=== PATIENT | female | born 1970 | race Caucasian/White ===

== ENCOUNTER 2021-10-23 15:00 | Emergency (ER) | payer OTHER ==
[2021-10-23 15:06] VITALS: RESP 16
[2021-10-23] MEDS ORDERED: ORPHENADRINE 30 MG/ML 2 ML VIAL IVP STA (15:56)
[2021-10-23] MEDS ORDERED: MORPHINE SULFATE 4 MG/ML SYRINGE IVP STA (15:56)
[2021-10-23] MEDS ORDERED: LIDOCAINE 5% PATCH TOPICAL SCH (16:00)
[2021-10-23] MEDS ORDERED: MORPHINE SULFATE 4 MG/ML SYRINGE IM STA (16:19)
[2021-10-23] MEDS ORDERED: ORPHENADRINE 30 MG/ML 2 ML VIAL IM STA (16:20)
--- NOTE | 2021-10-23 16:27 | XR ---
EXAMINATION TYPE: XR hand complete LT DATE OF EXAM: 10/23/2021 COMPARISON: NONE HISTORY: Pain TECHNIQUE: 3 views FINDINGS: There is soft tissue swelling on the dorsum of the hand. Metacarpals are intact. The finger s appear intact. There is nondisplaced transverse fracture of the distal radial metaphysis. This is 1 cm from the wris t joint. Distal ulna is intact. IMPRESSION: Soft tissue swelling. Acute nondisplaced distal radius fracture. There is comminution wit h intra-articular extension.
--- NOTE | 2021-10-23 16:28 | XR ---
EXAMINATION TYPE: XR wrist complete LT DATE OF EXAM: 10/23/2021 COMPARISON: NONE HISTORY: Pain TECHNIQUE: 4 views FINDINGS: There is acute transverse fracture distal radius. This is 1 cm from the wrist joint. There is also fracture line extending to the radiocarpal joint. Distal ulna is intact. Carpal bones are int act. IMPRESSION: Acute nondisplaced comminuted distal radius fracture.
--- NOTE | 2021-10-23 18:04 | ED ---
Fall HPI - General Chief Complaint: Fall Stated Complaint: hurt L hand Time Seen by Provider: 10/23/21 15:32 Source: patient Mode of arrival: ambulatory - History of Present Illness Initial Comments: Patient is a 50-year-old female who presents to the emergency department for evaluation of fall. Patient states she was walking her pitbull holding the leash when her dog pulled toward another dog which cause her to fall on her outstretched left hand. Patient endorses pain over the back of her wrist as well as her hand. There is snuffbox tenderness. Patient denies numbness and tingling. Did not take anything for pain. - Related Data Previous Rx's Medication Instructions Recorded HYDROcodone/APAP 10-325MG [[place] 1 tab PO Q4HR PRN 3 Days #18 tab 10/23/21 10-325] Lidocaine 5% Patch [Lidoderm 5% 1 patch TOPICAL DAILY PRN #7 patch 10/23/21 Patch] Allergies Allergy/AdvReac Type Severity Reaction Status Date / Time furosemide [From Lasix] Allergy Unknown Verified 10/23/21 15:06 Review of Systems ROS Statement: Those systems with pertinent positive or pertinent negative responses have been documented in the HPI. ROS Other: All systems not noted in ROS Statement are negative. Past Medical History Past Medical History: Diabetes Mellitus, Hyperlipidemia, Hypertension, Thyroid Disorder Additional Past Medical History / Comment(s): lupus History of Any Multi-Drug Resistant Organisms: None Reported Past Surgical History: Coronary Bypass/CABG Additional Past Surgical History / Comment(s): triple bypass Past Psychological History: Anxiety, Bipolar, PTSD Smoking Status: Current every day smoker Past Alcohol Use History: None Reported Past Drug Use History: None Reported General Exam Limitations: no limitations General appearance: alert, in no apparent distress Head exam: Present: atraumatic, normocephalic, normal inspection Respiratory exam: Present: normal lung sounds bilaterally. Absent: respiratory distress, wheezes, rales, rhonchi, stridor Cardiovascular Exam: Present: regular rate, normal rhythm, normal heart sounds. Absent: systolic murmur, diastolic murmur, rubs, gallop, clicks Right Upper Arm exam: Present: normal inspection, full ROM. Absent: tenderness, swelling Elbow exam: Present: normal inspection, full ROM. Absent: tenderness, swelling Forearm Wrist exam: Present: full ROM. Absent: normal inspection (Significant tenderness and swelling over the posterior distal forearm and posterior hand. tenderness or anatomical snuffbox. Neurovascularly intact.), deformity Neuro motor exam: Present: wrist extension intact, thumb opposition intact, thumb IP flexion intact, thumb adduction intact, fingers 2-5 abduction intact Vascular: Present: normal capillary refill, radial pulse, brachial pulse, ulnar pulse. Absent: vascular compromise, Pallo Neurological exam: Present: alert, oriented X3, CN II-XII intact Psychiatric exam: Present: normal affect, normal mood Skin exam: Present: warm, dry, intact, normal color. Absent: rash Course Vital Signs 10/23/21 10/23/21 15:01 18:31 Temperature 98.1 F 97.8 F Pulse Rate 82 78 Respiratory 16 16 Rate Blood Pressure 154/89 152/76 O2 Sat by Pulse 98 97 Oximetry Procedures - Orthopedic Splinting/Casting Injury #1 Upper Extremity Injury Location: short arm Upper Extremity Immobilizer: volar splint Medical Decision Making - Medical Decision Making This is a 50-year-old female who presents with left wrist and hand pain after fall on outstretched hand today. Thorough history and examination were performed. There is significant tenderness and swelling over the posterior distal forearm and posterior hand. Tenderness over anatomical snuffbox. Neurovascularly intact. Left hand and wrist x-ray shows acute comminuted nondisplaced distal radius fracture. There is fracture line extending to the radial carpal joint. Distal ulna is intact. Carpal and metacarpal bones are intact. Pain controlled with morphine. Patient placed in a volar forearm splint. Neurovascularly intact on reevaluation. Patient referred to assessment specialist. Fracture care education provided in detail. Return parameters discussed. Patient verbalizes understanding and is agreeable to this plan. Dr. Amin is my attending Disposition Clinical Impression: Distal radius fracture, left Disposition: HOME SELF-CARE Condition: Good Additional Instructions: You will have an acute nondisplaced comminuted distal radius fracture. Keep splint clean and dry. Take medication as directed. Follow-up with assessment specialist in the morning. Return to the emergency department if you experience new, concerning, or worsening symptoms. Prescriptions: Lidocaine 5% Patch [Lidoderm 5% Patch] 1 patch TOPICAL DAILY PRN #7 patch PRN Reason: Pain HYDROcodone/APAP 10-325MG [[place] 10-325] 1 tab PO Q4HR PRN 3 Days #18 tab PRN Reason: Pain Is patient prescribed a controlled substance at d/c from ED?: Yes If prescribed controlled substance>3 days was MAPS reviewed?: Yes Referrals: Mohsen Gonsalez MD [Primary Care Provider] - 1-2 days Time of Disposition: 18:04
[2021-10-23 18:32] VITALS: BP 152/76; PULSE 78; TEMP 97.8
== END 2021-10-23 18:31 | disposition home or self-care (01) ==
LOC: EC 15:00
DX: S52.502A Unspecified fracture of the lower end of left radius, initial encounter for closed fracture (principal); E11.9 Type 2 diabetes mellitus without complications; E78.5 Hyperlipidemia, unspecified; I10 Essential (primary) hypertension; E07.9 Disorder of thyroid, unspecified; F17.200 Nicotine dependence, unspecified, uncomplicated; Z88.2 Allergy status to sulfonamides; W19.XXXA Unspecified fall, initial encounter; Y93.01 Activity, walking, marching and hiking
CPT/HCPCS: 73110; 73130; 99283; 29125; 96372; J2270; J2360

== ENCOUNTER → 2022-01-10 | Outpatient (CLI) | payer OTHER ==
--- NOTE | 2022-01-10 13:40 | XR ---
Left knee Limited HISTORY: Left knee pain 2 views the left knee No comparisons There is marginal spurring tricompartmentally. Joint space loss is mild. Suprapatellar increased dens ity is consistent with joint effusion. Surgical clips are present along the medial aspect of the left leg. Bone mineralization and alignment are maintained. No fracture or dislocation. Atherosclerotic v ascular calcifications are noted incidentally. IMPRESSION: Osteoarthritis.
--- NOTE | 2022-01-10 13:45 | XR ---
MR spine HISTORY: M54.5, M25.562 3 views of lumbar spine There is a slight dextroscoliosis centered at L3. Multilevel spondylosis is present. Some mild loss o f disc height present at intervertebral levels. Lumbar vertebral bodies show preserved height and bon e mineralization. Atherosclerotic vascular calcifications present in the aorta iliac distribution. IMPRESSION: Degenerative disc disease.
== END | disposition home or self-care (01) ==
LOC: RADXRMAIN 12:49
PROVIDERS: ATTEND Family Medicine
DX: M17.12 Unilateral primary osteoarthritis, left knee (principal); M51.36 Other intervertebral disc degeneration, lumbar region
CPT/HCPCS: 72100

== ENCOUNTER → 2022-02-14 | Outpatient (CLI) | payer OTHER ==
--- NOTE | 2022-02-14 15:39 | XR ---
EXAMINATION TYPE: XR wrist limited LT DATE OF EXAM: 02/14/2022 CLINICAL HISTORY: Pain. TECHNIQUE: Frontal and lateral views left wrist. COMPARISON: Prior left wrist x-ray October 23, 2021 FINDINGS: There is no acute fracture/dislocation evident in the left wrist. Mild narrowing and spur ring base of first metacarpal. The carpal joint spaces are otherwise fairly well-maintained. The ove rlying soft tissue appears unremarkable. IMPRESSION: As above.
== END | disposition home or self-care (01) ==
LOC: RADXRMAIN 09:45
PROVIDERS: ATTEND Family Medicine
DX: M25.742 Osteophyte, left hand (principal)

== ENCOUNTER → 2022-08-23 | Outpatient (CLI) | payer OTHER ==
[~2022-08-23] MED LIST: REGADENOSON 0.4 MG/5 ML SYRINGE IV PRN
--- NOTE | 2022-08-23 13:21 | NM ---
EXAMINATION TYPE: NM stress lexiscan cardiolite DATE OF EXAM: 08/23/2022 COMPARISON: NONE CLINICAL INDICATION: Female, 51 years old with history of I20.0 I50.22 I25.10; chest pain TECHNIQUE: After the intravenous administration of 8.6 mCi Tc 99m Sestamibi - Cardiolite resting SPE CT images acquired 55 minutes post injection. The patient received 0.4mg Lexiscan, 22.7 mCi Tc 99m Sestamibi - Stress images obtained [address] injection FINDINGS: Review of stress and rest SPECT images demonstrates small area of stress-induced reversibility involv ing the inferior lateral wall. Gated analysis shows normal wall motion with an estimated left ventri cular ejection fraction of 61 %. Report called to referring clinician 08/23/2022 at 1:16 PM. IMPRESSION: Finding suspicious for a small area of stress-induced reversible ischemia involving the inferolateral myocardium..
== END | disposition home or self-care (01) ==
LOC: RADNMMAIN 09:27
PROVIDERS: ATTEND Family Medicine
DX: I25.10 Atherosclerotic heart disease of native coronary artery without angina pectoris (principal); I20.0 Unstable angina; I50.22 Chronic systolic (congestive) heart failure
CPT/HCPCS: 93017; 78452; A9500; J2785

== ENCOUNTER 2023-09-18 20:27 | Observation (INO) | payer OTHER ==
--- NOTE | 2023-09-18 21:09 | ED ---
Chest Pain HPI - General Chief Complaint: Chest Pain Stated Complaint: Chest/Back Pain Time Seen by Provider: 09/18/23 20:51 Source: patient, RN notes reviewed Mode of arrival: wheelchair Limitations: no limitations - History of Present Illness Initial Comments: This is a 52-year-old female who presents to the emergency department for chest pain and back pain. States that around 8 PM she developed pain in her right lower back radiating down her right leg. States that this felt like a flareup of sciatica, which she does have a history of. About 10 to 15 minutes afterwards she started to develop chest pressure. States that she has never developed chest pressure before in association with sciatica, which concerned her. She tried taking nitroglycerin, which did not help with her pain. Reports shortness of breath associated with chest pressure. She had triple bypass surgery in 2014. Denies any problems with her heart since. No longer taking any blood thinners. Does follow with cardiology locally but cannot remember who she follows with. States that they would like her to have a stress test soon. MD Complaint: chest pain - Related Data Home Medications Medication Instructions Recorded Confirmed Aspirin 81 mg PO DAILY 09/19/23 09/19/23 Atorvastatin Calcium [Lipitor] 80 mg PO HS 09/19/23 09/19/23 Baclofen 10 mg PO TID PRN 09/19/23 09/19/23 Calcium Carbonate/Vitamin D3 1 tab PO TID 09/19/23 09/19/23 [Calcium 500-Vit D3 400 Chew Tb] Desvenlafaxine [Pristiq ER] 100 mg PO DAILY 09/19/23 09/19/23 Docusate Sodium 250 mg PO DAILY PRN 09/19/23 09/19/23 Gabapentin 800 mg PO TID 09/19/23 09/19/23 Nitroglycerin Sl Tabs [Nitrostat] 0.4 mg SUBLINGUAL Q5M PRN 09/19/23 09/19/23 Topiramate [Topamax] 200 mg PO BID 09/19/23 09/19/23 carvediloL [Coreg] 25 mg PO BID 09/19/23 09/19/23 oxyCODONE-APAP 5-325MG [Percocet 1 tab PO BID PRN 09/19/23 09/19/23 5-325 mg] Previous Rx's Medication Instructions Recorded Acetaminophen Tab [Tylenol] 650 mg PO Q6HR PRN tab 09/20/23 Isosorbide Mononitrate ER [Imdur] 30 mg PO DAILY #30 tab 09/20/23 Losartan [Cozaar] 25 mg PO DAILY #30 tab 09/20/23 Allergies Allergy/AdvReac Type Severity Reaction Status Date / Time furosemide [From Lasix] Allergy Unknown Verified 09/19/23 07:41 amlodipine [From Norvasc] AdvReac Swelling Verified 09/19/23 07:41 isosorbide [From Isordil] AdvReac Headache Verified 09/19/23 07:41 Review of Systems ROS Statement: Those systems with pertinent positive or pertinent negative responses have been documented in the HPI. ROS Other: All systems not noted in ROS Statement are negative. Past Medical History Past Medical History: Diabetes Mellitus, Hyperlipidemia, Hypertension, Thyroid Disorder Additional Past Medical History / Comment(s): lupus History of Any Multi-Drug Resistant Organisms: None Reported Past Surgical History: Coronary Bypass/CABG Additional Past Surgical History / Comment(s): triple bypass Past Psychological History: Anxiety, Bipolar, PTSD Smoking Status: Current every day smoker Past Alcohol Use History: None Reported Past Drug Use History: Marijuana General Exam Limitations: no limitations General appearance: alert, in no apparent distress Head exam: Present: atraumatic, normocephalic, normal inspection Respiratory exam: Present: normal lung sounds bilaterally. Absent: respiratory distress, wheezes, rales, rhonchi, stridor Cardiovascular Exam: Present: regular rate, normal rhythm, normal heart sounds. Absent: systolic murmur, diastolic murmur, rubs, gallop, clicks Extremities exam: Present: other (Tenderness to palpation of the majority of the right leg. No deformities. 2+ DP and PT pulses.) Neurological exam: Present: alert, oriented X3, CN II-XII intact Psychiatric exam: Present: normal affect, normal mood Skin exam: Present: warm, dry, intact, normal color. Absent: rash Course Vital Signs 09/18/23 09/19/23 09/19/23 20:30 00:29 02:14 Temperature 98.1 F Pulse Rate 81 56 L 63 Respiratory 18 19 18 Rate Blood Pressure 154/94 111/64 131/78 O2 Sat by Pulse 97 95 96 Oximetry 07/03/24 07/03/24 04:00 08:19 Temperature Pulse Rate 61 53 L Respiratory 18 18 Rate Blood Pressure 118/77 132/78 O2 Sat by Pulse 96 99 Oximetry Chest Pain MDM - MDM This is a 52 year old female who presents to the emergency department for chest pain. Was pt. sent in by a medical professional or institution? @ -No Did you speak to anyone other than the patient for history? @ -No Did you review nursing and triage notes? @ -Yes, and I agree, it is accurate with regards to the patient's symptoms. Were old charts reviewed? @ -No Differential Diagnosis? @ -Differential Chest Pain: Stable Angina, Unstable Angina, STEMI, NSTEMI Aortic Dissection, Pneumothorax, Musculoskeletal, Esophageal Spasm GERD, Cholecystitis, Pancreatitis, Zoster, this is not meant to be an all-inclusive list. EKG interpreted by me (3pts min.)? @ -EKG interpreted by me demonstrating the following: Sinus rhythm. Ventricular rate 71 bpm, MS interval 166 ms, QRS duration 94 ms, QTc 439 ms. X-rays interpreted by me (1pt min.)? @ -Chest x-ray obtained, my interpretation identifies no localized consolidations or infiltrates. CT interpreted by me (1pt min.)? @ -Not obtained U/S interpreted by me (1pt. min.)? @ -Not obtained What testing was considered but not performed? (CT, X-rays, U/S, labs)? Why? @ -None What meds were considered but not given? Why? @ -None Did you discuss the management of the patient with other professionals? @ -No Did you reconcile home meds? @ -No Was smoking cessation discussed for >3mins.? @ -No Was critical care preformed (if so, how long)? @ -No Were there social determinants of health that impacted care today? How? (Homelessness, low income, unemployed, alcoholism, drug addiction, transportation, low edu. Level, literacy, decrease access to med. care, half-way, rehab)? @ -No Was there de-escalation of care discussed even if they declined? (Discuss DNR or withdrawal of care, Hospice)? @ -No What co-morbidities impacted this encounter? (DM, HTN, Smoking, COPD, CAD, Cancer, CVA, Hep., AIDS, mental health diagnosis, sleep apnea, morbid obesity)? @ -CAD Was patient admitted / discharged? @ -Admitted. Lab work unremarkable including a negative troponin and negative D-dimer. Chest x-ray reveals no acute process. Patient had severe chest pain on arrival and she was given aspirin and Nitropaste was applied. She had no improvement in symptoms following those medications. Given the patient's history of CAD with triple bypass in 2014 and persistent chest pain, she was admitted to medicine for cardiac observation/ACS rule out. Consult placed for cardiology and serial troponins ordered. Patient kept NPO after midnight in the event she needs a stress test or any interventions tomorrow. Undiagnosed new problem with uncertain prognosis? @ -None Drug Therapy requiring intensive monitoring for toxicity (Heparin, Nitro, Insulin, Cardizem)? @ -None Were any procedures done? @ -None Diagnosis/symptom? @ -Chest pain Acute, or Chronic, or Acute on Chronic? @ -Acute Uncomplicated (without systemic symptoms) or Complicated (systemic symptoms)? @ -Uncomplicated Side effects of treatment? @ -None Exacerbation, Progression, or Severe Exacerbation] @ -Not applicable Poses a threat to life or bodily function? @ -Yes if due to ACS This case was discussed in detail with the attending ED physician, Dr. Holder. Presentation, findings, and treatment plan discussed in detail as well. Disposition Clinical Impression: Chest pain Disposition: ADMITTED IP TO THIS HOSP
[2023-09-18 21:39] LABS: Basophils % (A) 1 %; Eosinophils # (A) 0.2 k/uL (0-0.7); Eosinophils % (A) 3 %; HCT 38.8 % (34.0-46.0); HGB 12.8 gm/dL (11.4-16.0); Lymphocytes # (A) 2.1 k/uL (1.0-4.8); Lymphocytes % (A) 34 %; MCHC 32.9 g/dL (31.0-37.0); MCV 94.3 fL (80.0-100.0); Mean Platelet Volume 8.1; Monocytes # (A) 0.4 k/uL (0-1.0); Monocytes % (A) 6 %; Neutrophils # (A) 3.3 k/uL (1.3-7.7); Neutrophils % (A) 53 %; Platelet Count 190 k/uL (150-450); RBC 4.11 m/uL (3.80-5.40); RDW 13.1 % (11.5-15.5); WBC 6.2 k/uL (3.8-10.6)
--- NOTE | 2023-09-18 21:50 | XR ---
EXAMINATION TYPE: XR chest 2V DATE OF EXAM: 09/18/2023 COMPARISON: None HISTORY: 52-year-old female with chest pain TECHNIQUE: PA and lateral views FINDINGS: Median sternotomy wires are present with post-CABG clips. Heart normal size. Hazy lower lung densitie s relating to overlying soft tissue. No consolidation or pleural effusion. IMPRESSION: No acute cardiopulmonary process.
[2023-09-18] MEDS: ASPIRIN 81 MG PO STA (21:54)
[2023-09-18] MEDS: SODIUM CHLORIDE 0.9% 1,000 ML IV STA (21:55)
[2023-09-18] MEDS: NITROGLYCERIN OINT 1 INCH/GM PACKET TOPICAL STA (21:55)
[2023-09-18] MEDS: KETOROLAC 15 MG/ML 1 ML VIAL IVP STA (21:55)
[2023-09-18 21:57] LABS: ALT 18 U/L (4-34); AST 26 U/L (14-36); African American GFR (CKD) >90 (>60 ml/min/1.73 sqM); Albumin 3.6 g/dL (3.5-5.0); Alkaline Phosphatase 55 U/L (38-126); Anion Gap 6 mmol/L; Blood Urea Nitrogen 10 mg/dL (7-17); Calcium 8.7 mg/dL (8.4-10.2); Carbon Dioxide 23 mmol/L (22-30); Chloride 114 mmol/L (98-107); Glucose 96 mg/dL (74-99); Lipase 165 U/L (23-300); Non-African American GFR(CKD) >90 (>60 ml/min/1.73 sqM); Potassium 3.4 mmol/L (3.5-5.1); Sodium 143 mmol/L (137-145); Total Bilirubin 0.4 mg/dL (0.2-1.3); Total Protein 6.1 g/dL (6.3-8.2)
[2023-09-18 23:08] LABS: Partial Thromboplastin Time 23.9 sec (22.0-30.0)
[2023-09-18] MEDS ORDERED: ACETAMINOPHEN TAB 325 MG TAB PO PRN (23:15)
[2023-09-18] MEDS ORDERED: NALOXONE 0.4 MG/ML 1 ML VIAL IV PRN (23:15)
[2023-09-18] MEDS ORDERED: ONDANSETRON 4 MG/2 ML VIAL IVP PRN (23:15)
[2023-09-18] MEDS ORDERED: MORPHINE SULFATE 4 MG/ML SYRINGE IV PRN (23:15)
[2023-09-18] MEDS: MORPHINE SULFATE 4 MG/ML SYRINGE IVP STA (23:20)
[2023-09-19] MEDS: HYDROcodone/APAP 5-325MG 1 EACH TAB PO PRN (00:39)
[2023-09-19] MEDS: KETOROLAC 15 MG/ML 1 ML VIAL IVP PRN (00:52)
[2023-09-19] MEDS ORDERED: CAFFEINE CITRATE 60 MG/3 ML VIAL IV PRN (08:02)
[2023-09-19] MEDS ORDERED: REGADENOSON 0.4 MG/5 ML SYRINGE IV PRN (08:02)
[2023-09-19] MEDS ORDERED: AMINOPHYLLINE 500 MG/20 ML VIAL IV PRN (08:02)
[2023-09-19] MEDS ORDERED: DEXTROSE 50% SYRINGE 50 ML IVP PRN ×2 (08:22)
--- NOTE | 2023-09-19 08:25 | P.HPIM ---
History of Present Illness H&P Date: 09/19/23 Chief Complaint: Chest pain This a 52-year-old female with past medical history significant for diabetes mellitus-diet controlled, CABG 2014, hypertension, hyperlipidemia, hyp othyroidism, lupus, bipolar disorder, nicotine dependence, marijuana use, degenerative disc disease-follows with Dr. Gallo-on disability and multiple other medical issues presented to the ER with complaints of midsternal chest and lower back pain radiating through her right hip down into her right thigh. She reports approximately 15 minutes after the flareup of her sciatica, she developed chest pressure with shortness of breath for about half an hour. Attempted nitroglycerin sublingual x 3. Pain subsided with no reoccurrence. Denies numbness or tingling of extremities. Troponins negative x 3, EKG reporting sinus rhythm, chest x-ray reported no acute cardiopulmonary process. Blood sugars controlled .hematology, coagulation, chemistry panel unremarkable with the exception of potassium 3.4. Repeat potassium level ordered. Review of Systems ROS Statement: Those systems with pertinent positive or pertinent negative responses have been documented in the HPI. ROS Other: All systems not noted in ROS Statement are negative. Past Medical History Past Medical History: Diabetes Mellitus, Hyperlipidemia, Hypertension, Thyroid Disorder Additional Past Medical History / Comment(s): lupus History of Any Multi-Drug Resistant Organisms: None Reported Past Surgical History: Coronary Bypass/CABG Additional Past Surgical History / Comment(s): triple bypass Past Psychological History: Anxiety, Bipolar, PTSD Smoking Status: Current every day smoker Past Alcohol Use History: None Reported Past Drug Use History: Marijuana Medications and Allergies Home Medications Medication Instructions Recorded Confirmed Type Aspirin 81 mg PO DAILY 09/19/23 09/19/23 History Atorvastatin Calcium [Lipitor] 80 mg PO HS 09/19/23 09/19/23 History Baclofen 10 mg PO TID PRN 09/19/23 09/19/23 History Calcium Carbonate/Vitamin D3 1 tab PO TID 09/19/23 09/19/23 History [Calcium 500-Vit D3 400 Chew Tb] Desvenlafaxine [Pristiq ER] 100 mg PO DAILY 09/19/23 09/19/23 History Docusate Sodium 250 mg PO DAILY PRN 09/19/23 09/19/23 History Gabapentin 800 mg PO TID 09/19/23 09/19/23 History Nitroglycerin Sl Tabs [Nitrostat] 0.4 mg SUBLINGUAL Q5M PRN 09/19/23 09/19/23 History Topiramate [Topamax] 200 mg PO BID 09/19/23 09/19/23 History carvediloL [Coreg] 25 mg PO BID 09/19/23 09/19/23 History oxyCODONE-APAP 5-325MG [Percocet 1 tab PO BID PRN 09/19/23 09/19/23 History 5-325 mg] Allergies Allergy/AdvReac Type Severity Reaction Status Date / Time furosemide [From Lasix] Allergy Unknown Verified 09/19/23 07:41 amlodipine [From Norvasc] AdvReac Swelling Verified 09/19/23 07:41 isosorbide [From Isordil] AdvReac Headache Verified 09/19/23 07:41 Physical Exam Vitals: Vital Signs Temp Pulse Resp BP Pulse Ox 09/19/23 04:00 61 18 118/77 96 09/19/23 02:14 63 18 131/78 96 09/19/23 00:29 56 L 19 111/64 95 09/18/23 20:30 98.1 F 81 18 154/94 97 Intake and Output 09/18/23 09/19/23 09/19/23 22:59 06:59 14:59 Other: Weight 87.997 kg PHYSICAL EXAM: VITAL SIGNS: [As above] GENERAL: Obese, alert and orient x 3, sitting up on stretcher, no acute distress HEENT: Normocephalic, atraumatic, conjunctivae normal. eyes normal. NECK: Supple, no JVD. No thyroid enlargement. No LNs CARDIOVASCULAR: S1, S2 regular.No murmur RESPIRATION: Unlabored, equal air entry, clear to auscultation. ABDOMEN: Soft, nontender . No guarding. no masses palpable. No ascites, No h epatosplenomegaly.Bowel sounds heard. LEGS: No edema. no swelling, no clubbing, no cyanosis, no calf tenderness. Positive DP. NERVOUS SYSTEM: Cranial N 2-12 grossly normal. No focal deficits. Strength and sensation grossly intact. Skin: Warm and dry, no rash Results CBC & Chem 7: 09/18/23 21:19 09/19/23 11:01 Labs: Abnormal Lab Results - Last 24 Hours (Table) 09/18/23 Range/Units 21:19 Potassium 3.4 L (3.5-5.1) mmol/L Chloride 114 H (98-107) mmol/L Total Protein 6.1 L (6.3-8.2) g/dL Assessment and Plan Assessment: Sciatica with midsternal chest pressure, unrelieved by nitroglycerin, troponins negative x 3 CAD, history of CABG 2014 Hypertension Hyperlipidemia Diabetes mellitus, hemoglobin A1c ordered Bipolar Nicotine dependence Marijuana use Obesity, BMI 31 Plan: Continue on current medication resume ,monitoring and symptomatic treatment.NPO, Evaluated by cardiology. 2D echo, Lexiscan stress test ordered. Smoking and marijuana cessation reinforced. Repeat potassium level ordered .patient will be discharged home today in a stable condition with guarded prognosis pending cardiac testing, final DC recommendations and clearance per ca rdiology. The impression and plan of care has been dictated as directed. : I performed a history and examination of this patient, discussed the same with the dictator. I agree with the dictator's note ,documented as a scribe. Any additional findings or plans will be noted.
[2023-09-19 08:31] LABS: Glucose,Whole Blood 97 mg/dL (70-110)
[2023-09-19] MEDS: INSULIN ASPART (NovoLOG) 100 UNIT/ML VIAL SQ SCH (08:31)
--- NOTE | 2023-09-19 09:00 | P.CRDCN ---
History of Present Illness History of present illness: HISTORY OF PRESENT ILLNESS: This is a 52-year-old female with a past medical history significant for coronary artery disease with previous three-vessel CABG in 2015, diet-controlled diabetes, hypertension, and occasional nicotine dependence. Patient follows in the office with Dr. Villalobos. We have been asked to see the patient in consultation for chest pain. Patient examined at the bedside in the emergency room. Patient states that yesterday she began to have lower back pain with radiation into her right hip. She states shortly afterwards she began to experience chest pain and shortness of breath. She states it felt like a constant pressure in the middle of her chest without radiation that lasted for approximately 30 minutes. She states nothing seems to make it better or worse. She states this pain felt different than the pain she had when she had her previous open heart surgery. She does report occasionally she has been having " pinches" in her chest. She also reports she has been having diarrhea for the past month. She reports occasional smoking. Patient does report that she has lost about 100 pounds and her recent A1c was 5.6 and she is no longer requiring diabetic medications. DIAGNOSTICS: - EKG reveals sinus mechanism with no signs of acute ischemia. - Chest xray negative for acute process. - Laboratory data: WBC 6.2. Hemoglobin 12.8. Platelet count 190. D-dimer 0.44. Sodium 143. Potassium 3.4. BUN 10. Creatinine 0.76. Troponin negative x 3 - Current home cardiac medications include carvedilol 25 mg twice a day, Lipitor 80 mg at night, aspirin 81 mg daily. -Patient underwent Lexiscan stress test in August 2022 revealing findings suspicious for small area of stress-induced reversible ischemia involving the inferior lateral myocardium REVIEW OF SYSTEMS: At the time of my exam: CONSTITUTIONAL: Denies fever or chills. HEENT: Denies blurred vision, vision changes, or eye pain. Denies hemoptysis CARDIOVASCULAR: Denies chest pain. Denies orthopnea. Denies PND. Denies palpitations RESPIRATORY: Denies shortness of breath. GASTROINTESTINAL: Denies abdominal pain. Denies nausea or vomiting. HEMATOLOGIC: Denies bleeding disorders. GENITOURINARY: Denies any blood in urine. SKIN: Denies pruitis. Denies rash. PHYSICAL EXAM: VITAL SIGNS: Reviewed. GENERAL: Well-developed in no acute distress. HEENT: Head is normocephalic. Pupils are equal, round. Sclerae anicteric. Mucous membranes of the mouth are moist. Neck supple. No JVD or thyromegaly LUNGS: Respirations even and unlabored. Lungs essentially clear to auscultation bilaterally. HEART: Regular rate and rhythm. S1 and S2 heard. ABDOMEN: Soft. Nondistended. Nontender. EXTREMITIES: Normal range of motion. No clubbing or cyanosis. Peripheral pulses intact. No lower extremity edema NEUROLOGIC: Awake and alert. Oriented x 3. ASSESSMENT: Chest pain, troponin negative x 3 Coronary artery disease with previous three-vessel CABG, 2014, performed in [place] Hypertension Diet-controlled diabetes Occasional nicotine use PLAN: And acute coronary event has been ruled out Resume home cardiac medications Obtain 2D echo to assess cardiac structure and function Patient to undergo Lexiscan stress test today If negative, she may be discharged home from a cardiac standpoint Nurse practitioner note has been reviewed by physician. Signing provider agrees with the documented findings, assessment, and plan of care documented by AMMUNITION STORAGE SUPERINTENDENT as a scribe. Past Medical History Past Medical History: Diabetes Mellitus, Hyperlipidemia, Hypertension, Thyroid Disorder Additional Past Medical History / Comment(s): lupus History of Any Multi-Drug Resistant Organisms: None Reported Past Surgical History: Coronary Bypass/CABG Additional Past Surgical History / Comment(s): triple bypass Past Psychological History: Anxiety, Bipolar, PTSD Smoking Status: Current every day smoker Past Alcohol Use History: None Reported Past Drug Use History: Marijuana Medications and Allergies Home Medications Medication Instructions Recorded Confirmed Type Aspirin 81 mg PO DAILY 09/19/23 09/19/23 History Atorvastatin Calcium [Lipitor] 80 mg PO HS 09/19/23 09/19/23 History Baclofen 10 mg PO TID PRN 09/19/23 09/19/23 History Calcium Carbonate/Vitamin D3 1 tab PO TID 09/19/23 09/19/23 History [Calcium 500-Vit D3 400 Chew Tb] Desvenlafaxine [Pristiq ER] 100 mg PO DAILY 09/19/23 09/19/23 History Docusate Sodium 250 mg PO DAILY PRN 09/19/23 09/19/23 History Gabapentin 800 mg PO TID 09/19/23 09/19/23 History Nitroglycerin Sl Tabs [Nitrostat] 0.4 mg SUBLINGUAL Q5M PRN 09/19/23 09/19/23 History Topiramate [Topamax] 200 mg PO BID 09/19/23 09/19/23 History carvediloL [Coreg] 25 mg PO BID 09/19/23 09/19/23 History oxyCODONE-APAP 5-325MG [Percocet 1 tab PO BID PRN 09/19/23 09/19/23 History 5-325 mg] Allergies Allergy/AdvReac Type Severity Reaction Status Date / Time furosemide [From Lasix] Allergy Unknown Verified 09/19/23 07:41 amlodipine [From Norvasc] AdvReac Swelling Verified 09/19/23 07:41 isosorbide [From Isordil] AdvReac Headache Verified 09/19/23 07:41 Physical Exam Vitals: Vital Signs Temp Pulse Resp BP Pulse Ox 09/19/23 04:00 61 18 118/77 96 09/19/23 02:14 63 18 131/78 96 09/19/23 00:29 56 L 19 111/64 95 09/18/23 20:30 98.1 F 81 18 154/94 97 Intake and Output 09/18/23 09/19/23 09/19/23 22:59 06:59 14:59 Other: Weight 87.997 kg Results 09/18/23 21:19 09/18/23 21:19 Cardiac Enzymes 09/18/23 09/18/23 09/19/23 Range/Units 21:19 21:19 00:10 AST 26 (14-36) U/L Troponin I <0.012 <0.012 (0.000-0.034) ng/mL 09/19/23 Range/Units 03:40 AST (14-36) U/L Troponin I <0.012 (0.000-0.034) ng/mL Coagulation 09/18/23 Range/Units 21:19 PT 11.0 (10.0-12.5) sec APTT 23.9 (22.0-30.0) sec CBC 09/18/23 Range/Units 21:19 WBC 6.2 (3.8-10.6) k/uL RBC 4.11 (3.80-5.40) m/uL Hgb 12.8 (11.4-16.0) gm/dL Hct 38.8 (34.0-46.0) % Plt Count 190 (150-450) k/uL Comprehensive Metabolic Panel 09/18/23 Range/Units 21:19 Sodium 143 (137-145) mmol/L Potassium 3.4 L (3.5-5.1) mmol/L Chloride 114 H (98-107) mmol/L Carbon Dioxide 23 (22-30) mmol/L BUN 10 (7-17) mg/dL Creatinine 0.76 (0.52-1.04) mg/dL Glucose 96 (74-99) mg/dL Calcium 8.7 (8.4-10.2) mg/dL AST 26 (14-36) U/L ALT 18 (4-34) U/L Alkaline Phosphatase 55 (38-126) U/L Total Protein 6.1 L (6.3-8.2) g/dL Albumin 3.6 (3.5-5.0) g/dL Current Medications Generic Name Dose Route Start Last Admin Trade Name Freq PRN Reason Stop Dose Admin Acetaminophen 650 mg 09/18/23 23:15 Acetaminophen Tab 325 Mg Tab PO Q6HR PRN Mild Pain or Fever > 100.5 Hydrocodone Bitart/Acetaminophen 1 each 09/18/23 23:15 09/19/23 02:20 Hydrocodone/Apap 5-325mg 1 Each Tab PO 1 each Q4HR PRN Administration Moderate Pain (Scale 4 to 6) Ketorolac Tromethamine 15 mg 09/18/23 23:15 09/19/23 00:52 Ketorolac 15 Mg/Ml 1 Ml Vial IVP 09/21/23 23:16 15 mg Q6HR PRN Administration Moderate Pain (Scale 4 to 6) Morphine Sulfate 4 mg 09/18/23 23:15 Morphine Sulfate 4 Mg/Ml Syringe IV Q4HR PRN Severe Pain (Scale 7 to 10) Naloxone HCl 0.2 mg 09/18/23 23:15 Naloxone 0.4 Mg/Ml 1 Ml Vial IV Q2M PRN Opioid Reversal Ondansetron HCl 4 mg 09/18/23 23:15 Ondansetron 4 Mg/2 Ml Vial IVP Q8HR PRN Nausea And Vomiting Pantoprazole Sodium 40 mg 09/19/23 09:00 Pantoprazole 40 Mg/10 Ml Vial IV DAILY VERNON Intake and Output 09/18/23 09/19/23 09/19/23 22:59 06:59 14:59 Other: Weight 87.997 kg 09/18/23 21:19 09/18/23 21:19
[2023-09-19 09:04] LABS: Glucose,Whole Blood 113 mg/dL (70-110)
[2023-09-19 10:07] LABS: Appearance,Urine Clear (Clear); Bilirubin,Urine Negative (Negative); Blood,Urine Negative (Negative); Color,Urine Light Yellow; Glucose,Urine (UA) Negative (Negative); Ketones,Urine Negative (Negative); Leukocyte Esterase,Urine Negative (Negative); Nitrite,Urine Negative (Negative); PH, Urine 6.5 (5.0-8.0); Protein,Urine Negative (Negative); Specific Gravity,Urine 1.015 (1.001-1.035); Urobilinogen,Urine <2.0 mg/dL (<2.0)
--- NOTE | 2023-09-19 10:08 | CA ---
Lexiscan Nuclear Stress Test Report Name: Shelia Read Exam Date: 09/19/2023 09:31 Exam Location: [facility] Stress Ht (in): 66 Wt (lb): 194 BSA: 1.97 Ordering Phys: Jacqueline Morocho Referring Phys: TRENA Technologist: Aurora Oh RDCS Age: 52 Gender: F : 1970 Procedure CPT: Indications: Reflex order-Stress test ICD-10 Codes: Patient History: CP, NANO, PALP, ANGINA, HTN, DM, CHOL, FAMILY HXM TOB, HI, CATH, CABG Medications: SEE CHART Meds past 24 hrs: Pretest Chest Pain: STRESS TEST Lexiscan Protocol Exercise Duration (min:sec): 01:[address] Depressions (mm): Angina Score: Morales Score: Resting HR (bpm): 53 Peak HR (bpm): 88 Resting BP (mmHg): 178 / 79 Peak BP (mmHg): 152 / 94 MPHR: 167 Target HR: 142 % MPHR: 53 METS: 1.0 Total Dose: Peak Dose: Atropine: Double Product: 76746 BP Response: Stress Termination: Reached target heart rate Stress Symptoms: No chest pain or symptoms Stress Summary: ECG ANALYSIS Resting ECG: Sinus rhythm. Normal conduction. No arrhythmias. Normal repolarization. Stress ECG: No ECG changes from baseline with Lexiscan infusion. CONCLUSIONS No ECG evidence of ischemia with Lexiscan infusion. Nuclear test results to follow. Dr. Jared Morales MD (Electronically Signed) Final Date: 19 September 2023 10:07
--- NOTE | 2023-09-19 11:03 | CA ---
Transthoracic Echo Report Name: Shelia Read Age: 52 Gender: F : 1970 Exam Date: 09/19/2023 09:45 Exam Location: [facility] Echo Ht (in): 66 Wt (lb): 194 Ordering Physician: Jacqueline Morocho Attending/Referring Phys: [id number], Rashawn Jewelry Casting Model Maker Janeth Veras, BEBO Procedure CPT: Indications: LV function, CP Cardiac Hx: Technical Quality: Fair Contrast 1: Total Dose (mL): Contrast 2: Total Dose (mL): MEASUREMENTS (Male / Female) Normal Values 2D ECHO LV Diastolic Diameter PLAX 4.9 cm 4.2 - 5.9 / 3.9 - 5.3 cm LV Systolic Diameter PLAX 3.1 cm IVS Diastolic Thickness 1.3 cm 0.6 - 1.0 / 0.6 - 0.9 cm LVPW Diastolic Thickness 1.1 cm 0.6 - 1.0 / 0.6 - 0.9 cm LV Relative Wall Thickness 0.5 RV Internal Dim ED PLAX 3.1 cm LA Systolic Diameter LX 3.9 cm 3.0 - 4.0 / 2.7 - 3.8 cm LV Diastolic Volume MOD BP 80.2 cm??? 67 - 155 / 56 - 104 cm??? LV Systolic Volume MOD BP 28.9 cm??? - 58 / 19 - 49 cm??? LV Ejection Fraction MOD BP 64.0 % >= 55 % LV Cardiac Index MOD BP 1448.9 cm???/min???m??? LV Diastolic Volume MOD 4C 69.3 cm??? LV Systolic Volume MOD 4C 23.8 cm??? LV Ejection Fraction MOD 4C 65.6 % LV Cardiac Index MOD 4C 1284.5 cm???/min???m??? LV Diastolic Length 4C 6.7 cm LV Systolic Length 4C 5.5 cm LV Diastolic Volume MOD 2C 87.8 cm??? LV Systolic Volume MOD 2C 31.0 cm??? LV Ejection Fraction MOD 2C 64.7 % LV Cardiac Index MOD 2C 1606.0 cm???/min???m??? LV Diastolic Length 2C 6.3 cm LV Systolic Length 2C 6.3 cm LA Volume 52.1 cm??? 18 - 58 / 22 - 52 cm??? LA Volume Index 25.4 cm???/m??? 16 - 28 cm???/m??? M-MODE Aortic Root Diameter MM 3.2 cm LA Systolic Diameter MM 3.7 cm LA Ao Ratio MM 1.2 AV Cusp Separation MM 2.1 cm DOPPLER AV Peak Velocity 165.3 cm/s AV Peak Gradient 10.9 mmHg MV Area PHT 2.4 cm??? Mitral E Point Velocity 94.5 cm/s Mitral A Point Velocity 91.2 cm/s Mitral E to A Ratio 1.0 MV Deceleration Time 317.5 ms TR Peak Velocity 279.9 cm/s TR Peak Gradient 31.3 mmHg Right Ventricular Systolic Press 36.3 mmHg FINDINGS Left Ventricle Left ventricular ejection fraction is estimated at 55-60%. Mildly increased left ventricular wall thickness. Left ventricular cavity size normal. No obvious regional wall motion abnormalities. Right Ventricle Normal right ventricular size and function. Mild pulmonary hypertension. Right Atrium Normal right atrial size. Left Atrium Mildly increased left atrial diameter. Mitral Valve Structurally normal mitral valve. Mild to moderate mitral regurgitation. Aortic Valve Trileaflet aortic valve. No aortic valve stenosis or regurgitation. Tricuspid Valve Structurally normal tricuspid valve. Mild tricuspid regurgitation. Pulmonic Valve Structurally normal pulmonic valve. Trace pulmonic regurgitation. No pulmonic stenosis. Pericardium No pericardial or pleural effusion. Aorta Normal size aortic root and proximal ascending aorta. CONCLUSIONS 1. Normal left ventricular size and systolic function 2. Mild to moderate mitral 3. Mild tricuspid regurgitation and mild pulmonary hypertension Previewed by: Dr. Jared Morales MD (Electronically Signed) Final Date: 19 September 2023 11:02
[2023-09-19] MEDS: ASPIRIN 81 MG PO SCH (11:11)
[2023-09-19] MEDS: carvediloL 12.5 MG TAB PO SCH (11:12)
[2023-09-19] MEDS: PANTOPRAZOLE 40 MG/10 ML VIAL IV SCH (11:12)
--- NOTE | 2023-09-19 11:26 | NM ---
EXAMINATION TYPE: NM stress lexiscan cardiolite DATE OF EXAM: 09/19/2023 COMPARISON: NONE CLINICAL INDICATION: Female, 52 years old with history of CP; TECHNIQUE: After the intravenous administration of 10.52 mCi Tc 99m Sestamibi - Cardiolite resting S PECT images acquired 45 minutes post injection. The patient received 0.4mg Lexiscan, 25.6 mCi Tc 99m Sestamibi - Stress images obtained [address] injection FINDINGS: Review of stress and rest SPECT images demonstrates large area of stress-induced reversibility involv ing the inferior wall the myocardium with corresponding wall motion abnormality. Gated analysis show s normal wall motion with an estimated left ventricular ejection fraction of 50 %. IMPRESSION: Large inferior wall stress induced reversible ischemia. Report called CARISA Phillips at 11:20 AM 09/19/2023. .
[2023-09-19] MEDS ORDERED: ALPRAZolam 0.25 MG TAB PO PRN (11:50)
[2023-09-19] MEDS ORDERED: ALPRAZolam 0.5 MG TAB PO PRN (11:50)
[2023-09-19] MEDS ORDERED: NITROGLYCERIN SL TABS 0.4 MG TAB SUBLINGUAL PRN (11:50)
[2023-09-19] MEDS: ASPIRIN 325 MG TAB PO STA (12:00)
[2023-09-19] MEDS: SODIUM CHLORIDE 0.9% 1,000 ML in EMPTY BAG 1 BAG IV SCH (12:00)
[2023-09-19] MEDS: ATORVASTATIN 80 MG TAB PO STA (12:00)
[2023-09-19] MEDS: IV FLUID CONTINUATION 1,000 ML IV ONE (12:50)
[2023-09-19] MEDS: MIDAZOLAM 2 MG/2 ML VIAL IVP ONE ×2 (13:14→13:24)
[2023-09-19] MEDS: fentaNYL (PF) 50 MCG/1 ML VIAL IVP ONE (13:14)
[2023-09-19] MEDS: LIDOCAINE 1% INJ 10MG/ML (20 ML MDV) SQ ONE (13:14)
[2023-09-19] MEDS: VERAPAMIL 2.5 MG/ML 4 ML VIAL INTRAARTER ONE (13:19)
[2023-09-19] MEDS: HEPARIN SODIUM 1,000 UN/ML (10ML VL) IVP ONE (13:28)
[2023-09-19] MEDS: IOPAMIDOL-370 100ML BTL INTRATHECA ONE (14:05)
[2023-09-19] MEDS: HEPARIN SODIUM,PORCINE (1 ML) 2,500 UNIT in SODIUM CHLORIDE 0.9% 250 ML IRRIGATION ONE (14:06)
[2023-09-19] MEDS: HEPARIN SODIUM,PORCINE 10,000 UNIT in SODIUM CHLORIDE 0.9% 1,000 ML IRRIGATION ONE (14:06)
[2023-09-19 14:23] LABS: Glucose,Whole Blood 81 mg/dL (70-110)
[2023-09-19] MEDS: SODIUM CHLORIDE 0.9% 1,000 ML IV SCH (15:39)
[2023-09-19] MEDS ORDERED: BACLOFEN 10 MG TAB PO PRN (16:09)
[2023-09-19] MEDS ORDERED: DOCUSATE 100 MG CAP PO PRN (16:09)
[2023-09-19] MEDS: amLODIPine 5 MG TAB ONE (16:24)
[2023-09-19] MEDS: hydrALAZINE HCL 20 MG/ML 1 ML VIAL ONE (16:24)
[2023-09-19] MEDS: hydrALAZINE HCL 25 MG TAB PO STA (16:30)
[2023-09-19] MEDS ORDERED: RX INFO: IV CONTRAST WAS GIVEN 1 EACH MISC MISCELLANE PRN (16:50)
--- NOTE | 2023-09-19 17:14 | P.CARDCATH ---
Date of Procedure: 09/19/23 Description of Procedure: DIAGNOSTIC CORONARY ANGIOGRAPHY and LEFT HEART CATH REPORT PROCEDURES PERFORMED: Left heart catheterization Selective coronary angiography Moderate conscious sedation 47 mins [Ultrasound assisted] left radial access INDICATION: 52-year-old with past medical history of CAD status post CABG with COOK to LAD, vein graft to diagonal, vein graft to RCA, underwent CABG in 2015 at [facility] in [place]. She presented to hospital because of substernal chest pain. She did not have any evidence of troponin elevation no new ECG changes. She underwent a Lexiscan nuclear stress test which showed reversible perfusion defect involving the inferior wall. For this she was scheduled for heart catheterization procedure. CONSENT: I have explained the procedural steps of above-mentioned procedures in layman's terms to the patient. I discussed the risks (including but not limited to stroke, emergent vascular or cardiac surgery or ), benefits and alternative therapies for the above-mentioned procedure. I discussed the risks of sedation/analgesia and blood product administration (if indicated). The patient has indicated understanding and acceptance of these risks. Conscious Sedation: Patient's ECG, heart rate, blood pressure, pulse oximetry were monitored throughout the duration of procedure under my direct supervision. [2] mg Versed and [50] mcg Fentanyl were used for induction of moderate conscious sedation. Total duration of moderate concious sedation 47 minutes. PROCEDURE: After explaining the risks, benefits and alternatives of the above mentioned procedures in detail to the patient, informed consent was obtained. Patient was taken to the catheterization lab, prepped and draped in usual sterile fashion using universal precuations. Ultrasound was used to identify the left artery. 1% lidocaine was infiltrated over the left radial artery. A 6-[place]ian sheath was placed and secured in the Left radial artery using modified Seldinger technique. The sheath was flushed and 5 mg verapamil was administered intra-arterially. J tipped wire was advanced under fluoroscopic guidance. Once the wire tip reached aortic root [5000] units of IV heparin was given. Over the wire JR4 diagnostic catheter was advanced. The wire was removed and the catheter was flushed. Catheter was manipulated to selectively engage the right coronary ostium. Right coronary angiography was performed. The catheter was manipulated to selectively engage the vein graft ostium's. It was noticed that the vein graft ostium were originating in atypical position. Therefore the JR4 diagnostic catheter was exchanged for a AL-1 diagnostic catheter. The catheter was manipulated and it across aortic valve spontaneously. The LV pressures were obtained and pullback across aortic valve was performed. The catheter was manipulated to selectively engage the left coronary ostium. Left coronary angiogram was performed in different angiographic projections. The catheter was manipulated to selectively engage the vein graft to diagonal artery. The vein graft to diagonal artery angiogram was performed. This catheter was exchanged for a 5 [place] multipurpose catheter. Catheter was manipulated to selectively engage the vein graft to PDA. Angiography was performed in different angiographic projections. The catheter was exchanged for a 6 [place]ian AMTY catheter. The catheter was manipulated to selectively engage the COOK graft. COOK graft angiogram was performed. The catheter was removed over the wire. Radial sheath was flushed. The right radial sheath was removed and a TR band was placed with excellent patent hemostasis was achieved. The patient tolerated the procedure well. Patient was transported back to the post catheterization holding area in stable condition. Angiographic images were reviewed in detail. Technical data Complications: None Estimated blood loss less than 20 minutes Contrast used: 90 mL of Isovue Total fluoroscopy time 14.7 minutes [address]atheters used 5 [place] JR4 [address] [place]ian multipurpose catheter 5 [address] [place]ian JL [address] [place] MATY catheter 6 [address] [place] AL-1 HEMODYNAMICS: Aortic Pressure: 130/81 mmHg. LV pressure: 145/8 mmHg. LVEDP 20 mmHg. There is a peak to be gradient of around 15 mmHg across aortic valve. SELECTIVE CORONARY ARTERIOGRAPHY: LEFT MAIN: The left main is short and large caliber vessel. It bifurcates into the LAD and circumflex. Left main appears angiographically normal. LEFT ANTERIOR DESCENDING CORONARY ARTERY: LAD is a large caliber vessel which wraps around to the apex. Just after origin proximal LAD has 99% stenosis. [place] mid LAD appears underfilled and has completed flow. Proximal LAD gives a small diagonal branch which is small caliber and has moderate diffuse disease. LEFT CIRCUMFLEX CORONARY ARTERY: It is nondominant vessel. LCx gives a small OM1 branch which is 100% INDUCTION COORDINATION ENGINEER. It is filled retrogradely with faint left to left collaterals. LCx then gives rise to a OM 2 which is 2 mm vessel and appears angiographically normal. After giving OM 2 branch, LCx becomes AV groove branch and distally gives further small OM branches. The AV groove branch and mid segment has moderate to severe diffuse disease. RIGHT CORONARY ARTERY: Appears to be a dominant vessel. It is 100% occluded in proximal segment. Bypass grafts COOK to LAD is patent SVG graft to PDA: 30 to 40% proximal stenosis. It has mild luminal irregularities and is otherwise patent. It is attached to the PDA which retrogradely fills PL branches. There is very sluggish flow in the vein graft with complete flow noticed in PDA. SVG to diagonal: 20 to 30% eccentric disease in mid vein graft. Otherwise appears patent. History supplies a small distal diagonal branch IMPRESSION: Severe [place] vessel disease, 100% proximal RCA, 99% proximal LAD, severe diffuse mid and distal LCx disease, 100% OM1 CARLITOS II flow in SVG to PDA, mild proximal disease and vein graft otherwise patent Patent COOK to LAD and SVG to diagonal Elevated LVEDP Mild aortic stenosis with peak to peak gradient of 15 mmHg PLAN: Aggressive risk factor modification per most recent ACC/AHA guidelines. 75 cc fluids for 6 hours Otherwise medications and antianginals. Controlled blood pressure. Follow-up in the office in 1-2 weeks. Performing Physician Raymond Oropeza MD, FACC, RPVI Thank you for allowing [facility] to participate in this patient's care. Feel free to reach out in case of any followup questions.
[2023-09-19] MEDS: GABAPENTIN 400 MG CAP PO SCH (17:26)
[2023-09-19] MEDS: LOSARTAN 25 MG TAB PO SCH (17:26)
[2023-09-19] MEDS: ISOSORBIDE MONONITRATE ER 30 MG TAB.ER.24H PO SCH (17:26)
[2023-09-19] MEDS: DESVENLAFAXINE SUCCINATE 50 MG TAB.ER.24H PO SCH (17:27)
[2023-09-19] MEDS: TOPIRAMATE 100 MG TAB PO SCH (20:16)
[2023-09-19] MEDS: ATORVASTATIN 80 MG TAB PO SCH (20:16)
[2023-09-20] MEDS ORDERED: HEPARIN SODIUM,PORCINE (1 ML) 2,500 UNIT in SODIUM CHLORIDE 0.9% 250 ML IRRIGATION PRN (07:00)
[2023-09-20] MEDS ORDERED: HEPARIN SODIUM,PORCINE 10,000 UNIT in SODIUM CHLORIDE 0.9% 1,000 ML IRRIGATION PRN (07:00)
[2023-09-20 08:25] VITALS: BP 123/71; RESP 16; TEMP 97.9
[2023-09-20] MEDS: ISOSORBIDE MONONITRATE ER 30 MG TAB.ER.24H PO SCH (08:38)
--- NOTE | 2023-09-20 09:44 | P.PN ---
Subjective HISTORY OF PRESENT ILLNESS: This is a 52-year-old female with a past medical history significant for coronary artery disease with previous three-vessel CABG in 2015, diet-controlled diabetes, hypertension, and occasional nicotine dependence. Patient follows in the office with Dr. Villalobos. We have been asked to see the patient in consultation for chest pain. Patient examined at the bedside in the emergency room. Patient states that yesterday she began to have lower back pain with radiation into her right hip. She states shortly afterwards she began to experience chest pain and shortness of breath. She states it felt like a constant pressure in the middle of her chest without radiation that lasted for approximately 30 minutes. She states nothing seems to make it better or worse. She states this pain felt different than the pain she had when she had her previous open heart surgery. She does report occasionally she has been having " pinches" in her chest. She also reports she has been having diarrhea for the past month. She reports occasional smoking. Patient does report that she has lost about 100 pounds and her recent A1c was 5.6 and she is no longer requiring diabetic medications. DIAGNOSTICS: - EKG reveals sinus mechanism with no signs of acute ischemia. - Chest xray negative for acute process. - Laboratory data: WBC 6.2. Hemoglobin 12.8. Platelet count 190. D-dimer 0.44. Sodium 143. Potassium 3.4. BUN 10. Creatinine 0.76. Troponin negative x 3 - Current home cardiac medications include carvedilol 25 mg twice a day, Lipitor 80 mg at night, aspirin 81 mg daily. -Patient underwent Lexiscan stress test in August 2022 revealing findings suspicious for small area of stress-induced reversible ischemia involving the inferior lateral myocardium 09/20/2023 Patient underwent Lexiscan stress test yesterday revealing reversible ischemia in the inferior wall. She underwent cardiac catheterization yesterday with Dr. Oropeza revealing severe [place] vessel disease, 100% proximal RCA, 99% proximal LAD, severe diffuse mid and distal circumflex disease, 100% OM1, CARLITOS II flow and SVG to PDA, mild proximal disease and vein graft otherwise patent, patent COOK to LAD, and patent SVG to diagonal. Medical management was recommended. Patient examined this morning the bedside. She denies any chest pain or pressure. She denies any shortness of breath. PHYSICAL EXAM: VITAL SIGNS: Reviewed. GENERAL: Well-developed in no acute distress. HEENT: Head is normocephalic. Pupils are equal, round. Sclerae anicteric. Mucous membranes of the mouth are moist. Neck supple. No JVD or thyromegaly LUNGS: Respirations even and unlabored. Lungs essentially clear to auscultation bilaterally. HEART: Regular rate and rhythm. S1 and S2 heard. ABDOMEN: Soft. Nondistended. Nontender. EXTREMITIES: Normal range of motion. No clubbing or cyanosis. Peripheral pulses intact. No lower extremity edema NEUROLOGIC: Awake and alert. Oriented x 3. ASSESSMENT: Chest pain, troponin negative x 3, status post cardiac catheterization as above with medical management recommended Coronary artery disease with previous three-vessel CABG, 2015, performed in [place] Hypertension Diet-controlled diabetes Occasional nicotine use PLAN: Continue current cardiac medications Patient has been started on Imdur. Patient states she has been unable to tolerate this in the past due to a headache but she is willing to try again. Recommended amlodipine to patient. However she states that she has a history of swelling with amlodipine and is unable to tolerate this medication. Patient has been started on losartan Patient may be discharged home today from a cardiac standpoint She is to follow-up in the office with Dr. Villalobos Nurse practitioner note has been reviewed by physician. Signing provider agrees with the documented findings, assessment, and plan of care documented by INSTRUCTIONAL TECHNOLOGY FACILITATOR as a scribe. Objective - Vital Signs Vital signs: Vital Signs Temp 97.9 F 09/20/23 07:00 Pulse 47 L 09/20/23 07:00 Resp 16 09/20/23 07:00 BP 123/71 09/20/23 07:00 Pulse Ox 100 09/20/23 07:00 FiO2 Intake & Output 09/19/23 09/20/23 09/20/23 18:59 06:59 18:59 Intake Total 275 118 Balance 275 118 Weight 87.997 kg Intake: IV 275 Oral 118 Other: # Voids 2 - Labs CBC & Chem 7: 09/18/23 21:19 09/19/23 11:01
[2023-09-20 10:15] LABS: Blood Urea Nitrogen 11.7 mg/dL (9.0-27.0); Calcium 8.9 mg/dL (8.7-10.3); Carbon Dioxide 25.7 mmol/L (21.6-31.8); Chloride 114 mmol/L (96-109); Glucose 125 mg/dL (70-110); Potassium 4.3 mmol/L (3.5-5.5); Sodium 146 mmol/L (135-145)
[2023-09-20 10:41] VITALS: PULSE 55
[2023-09-20 10:55] LABS: Basophils # (A) 0.05 X 10*3/uL (0.00-0.10); Basophils % (A) 0.8 %; Eosinophils # (A) 0.28 X 10*3/uL (0.04-0.35); Eosinophils % (A) 4.8 %; HCT 38.8 % (37.2-46.3); HGB 12.7 g/dL (12.0-15.0); Lymphocytes # (A) 2.53 X 10*3/uL (0.90-5.00); MCH 30.5 pg (27.0-32.0); MCHC 32.7 g/dL (32.0-37.0); Monocytes # (A) 0.43 X 10*3/uL (0.20-1.00); Monocytes % (A) 7.3 %; NRBC Per 100 WBC 0 X 10*3/uL (0.00-0.01); Neutrophils # (A) 2.58 X 10*3/uL (1.80-7.70); Neutrophils % (A) 43.8 %; Platelet Count 174 X 10*3/uL (140-440); RBC 4.17 X 10*6/uL (4.10-5.20); WBC 5.89 X 10*3/uL (4.50-10.00)
--- NOTE | 2023-09-23 10:53 | P.DS ---
Providers Date of admission: 09/18/23 23:16 Expected date of discharge: 09/20/23 Attending physician: Mohsen Gonsalez MD Consults: 09/18/23 23:15 Consult Physician Urgent Consulting Provider: Laci Pedersen Consult Reason/Comments: Chest pain Do you want consulting provider notified?: Yes Primary care physician: Mohsen Gonsalez MD Hospital Course: Final diagnosis Sciatica with midsternal chest pressure, unrelieved by nitroglycerin, troponins negative x 3, abnormal stress test on 09/19/2023 Status post cardiac catheterization revealing severe [place] vessel disease, 100% proximal RCA, 99% proximal LAD with severe diffuse and mid and distal circumflex disease. Per cardiology recommending maximizing medical management and close outpatient follow-up CAD, history of CABG 2014 Hypertension Hyperlipidemia Diabetes mellitus, type II, uncontrolled with hyperglycemia Bipolar history Continued ongoing nicotine dependence Marijuana use Obesity, BMI 31 GI prophylaxis DVT prophylaxis Full code Discharge disposition Patient is being discharged in a stable condition with guarded prognosis to home. Patient will follow-up with Dr. Gonsalez in the outpatient setting upon d ischarge. Patient is to continue with current cardiac medications and maximizing medical management with close outpatient follow-up with cardiology as scheduled. Total time taken is greater than 35 minutes. Hospital course This is a 52-year-old female who was recently admitted with chest pain being closely monitored. Patient evaluated by cardiology recommending stress testing which had some areas of concern recommending cardiac catheterization. Patient underwent cardiac catheterization as mentioned above recommending maximizing medical management and close outpatient follow-up. Patient had not been taking various medications due to side effects although willing to retry. Patient will be taking current cardiac medications as mentioned below. Patient has been cleared for discharge today recommending outpatient follow-up. Please refer to cardiology notes for further HPI. Currently no reports of chest pain, shortness of breath, or palpitations. Patient is afebrile. No reports of nausea or vomiting and patient is tolerating diet. Patient will be discharged home today. Guarded prognosis and high risk for readmission given patient's comorbidities. Physical exam: Gen: This is a 52-year-old female who is awake, alert and oriented x 3, well- developed, well-nourished, obese HEENT: Head is atraumatic, normocephalic. Pupils equal, round. Sclerae is anicteric. NECK: Supple. No JVD. No lymphadenopathy. No thyromegaly. LUNGS: Diminished breath sounds bilaterally otherwise clear to auscultation. No wheezes or rhonchi. No intercostal retractions. HEART: S1, S2 are muffled ABDOMEN: Soft. Obese. Bowel sounds are present. No masses. No tenderness. EXTREMITIES: No pedal edema. No calf tenderness. NEUROLOGICAL: Patient is awake, alert and oriented x3. Cranial nerves 2 through 12 are grossly intact. Please refer to medication reconciliation sheet for a list of medications. The impression and plan of care has been dictated by Lillian Byrne Nurse Prac titioner as directed. Dr. Jeremy MD I have performed a history and examination and MDM of this patient, discussed the same with the dictator, and agree with the dictator's assessment and plan as written ,documented as a scribe. Based on total visit time, I have performed more than 50% of the visit. Patient Condition at Discharge: Fair Plan - Discharge Summary New Discharge Prescriptions: New Isosorbide Mononitrate ER [Imdur] 30 mg PO DAILY #30 tab Losartan [Cozaar] 25 mg PO DAILY #30 tab Acetaminophen Tab [Tylenol] 650 mg PO Q6HR PRN tab PRN Reason: Mild Pain Or Fever > 100.5 Continue oxyCODONE-APAP 5-325MG [Percocet 5-325 mg] 1 tab PO BID PRN PRN Reason: Pain Gabapentin 800 mg PO TID Topiramate [Topamax] 200 mg PO BID Atorvastatin Calcium [Lipitor] 80 mg PO HS Desvenlafaxine [Pristiq ER] 100 mg PO DAILY Aspirin 81 mg PO DAILY Calcium Carbonate/Vitamin D3 [Calcium 500-Vit D3 400 Chew Tb] 1 tab PO TID carvediloL [Coreg] 25 mg PO BID Nitroglycerin Sl Tabs [Nitrostat] 0.4 mg SUBLINGUAL Q5M PRN PRN Reason: Chest Pain Docusate Sodium 250 mg PO DAILY PRN PRN Reason: Constipation Baclofen 10 mg PO TID PRN PRN Reason: Muscle Spasm Discharge Medication List Aspirin 81 mg PO DAILY 09/19/23 [History] Atorvastatin Calcium [Lipitor] 80 mg PO HS 09/19/23 [History] Baclofen 10 mg PO TID PRN 09/19/23 [History] Calcium Carbonate/Vitamin D3 [Calcium 500-Vit D3 400 Chew Tb] 1 tab PO TID 09/19/23 [History] Desvenlafaxine [Pristiq ER] 100 mg PO DAILY 09/19/23 [History] Docusate Sodium 250 mg PO DAILY PRN 09/19/23 [History] Gabapentin 800 mg PO TID 09/19/23 [History] Nitroglycerin Sl Tabs [Nitrostat] 0.4 mg SUBLINGUAL Q5M PRN 09/19/23 [History] Topiramate [Topamax] 200 mg PO BID 09/19/23 [History] carvediloL [Coreg] 25 mg PO BID 09/19/23 [History] oxyCODONE-APAP 5-325MG [Percocet 5-325 mg] 1 tab PO BID PRN 09/19/23 [History] Acetaminophen Tab [Tylenol] 650 mg PO Q6HR PRN tab 09/20/23 [Rx] Isosorbide Mononitrate ER [Imdur] 30 mg PO DAILY #30 tab 09/20/23 [Rx] Losartan [Cozaar] 25 mg PO DAILY #30 tab 09/20/23 [Rx] Follow up Appointment(s)/Referral(s): Mohsen Gonsalez MD [Primary Care Provider] - 1-2 days Elliot Villalobos MD [STAFF PHYSICIAN] - 1 Week Patient Instructions/Handouts: *Surgery [facility] - After Heart Catheterization - [employer] Instructions Activity/Diet/Wound Care/Special Instructions: Activity limited until follow-up Follow-up with primary care provider on discharge Continue taking medications as prescribed Follow-up with cardiology in 1 to 2 weeks Discharge Disposition: HOME SELF-CARE
== END 2023-09-20 14:26 | disposition home or self-care (01) ==
LOC: EC 20:27 → 6NMEDSUR 23:16
PROVIDERS: ADMIT Family Medicine; ATTEND Family Medicine
DX: R07.89 Other chest pain (principal); M54.41 Lumbago with sciatica, right side; E11.65 Type 2 diabetes mellitus with hyperglycemia; I25.10 Atherosclerotic heart disease of native coronary artery without angina pectoris; I10 Essential (primary) hypertension; E78.5 Hyperlipidemia, unspecified; E03.9 Hypothyroidism, unspecified; M32.9 Systemic lupus erythematosus, unspecified; F31.9 Bipolar disorder, unspecified; F41.9 Anxiety disorder, unspecified; F12.90 Cannabis use, unspecified, uncomplicated; E66.9 Obesity, unspecified; Z68.31 Body mass index [BMI] 31.0-31.9, adult; F17.200 Nicotine dependence, unspecified, uncomplicated; Z79.82 Long term (current) use of aspirin; Z79.899 Other long term (current) drug therapy; Z88.8 Allergy status to other drugs, medicaments and biological substances; Z95.1 Presence of aortocoronary bypass graft
CPT/HCPCS: 96376; 96361; 96374; 96375 ×2; 99285; 36415; 93005; 93017; 93306; 93459; 85379; 80053; 80048; 83690; 83735; 84132; 84484 ×2; 85025 ×2; 85610; 85730; 81003; 83036; 71046; 78452; G0378 ×3; C1769; C1894; A9500; J2250; J2270; J1644 ×3; J2001; J2785; J1885 ×2; Q9967; J3010; J2470 ×2